=== PATIENT | male | born 1960 | race Caucasian/White ===

== ENCOUNTER 2023-09-04 08:11 | Emergency (ER) | payer MEDICARE, OTHER ==
[~2023-09-04] VITALS: Ht 167.6 cm; Wt 72.6 kg
[2023-09-04 08:42] LABS: HEMATOCRIT 47.3 % (42-54); MEAN CORPUSCULAR HEMOGLOBIN 33.8 pg (27.0-33.0); MEAN CORPUSCULAR VOLUME 99.2 fL (79-99); RED BLOOD CELL COUNT(AUTO) 4.77 MIL/uL (4.50-6.20); RED CELL DISTRIBUTION WIDTH 12.7 % (11.0-15.5); WHITE BLOOD COUNT (AUTO) 9.7 K/uL (4.8-10.8)
[2023-09-04 08:48] LABS: APPEARANCE,URINE CLEAR (CLEAR); BILIRUBIN,URINE NEGATIVE (NEGATIVE); COLOR,URINE LIGHT-YELLOW (YELLOW); GLUCOSE, URINE (UA) NEGATIVE (NEGATIVE); KETONES,URINE 5 mg/dL (NEGATIVE); LEUKOCYTE ESTERASE ,URINE NEGATIVE Leu/uL (NEGATIVE); NITRATE,URINE NEGATIVE (NEGATIVE); OCCULT BLOOD,URINE NEGATIVE (NEGATIVE); PH,URINE 6.5 (5.0-8.0); PROTEIN,URINE NEGATIVE (NEGATIVE); UROBILINOGEN,URINE 0.2 mg/dL (0.2-1.0)
[2023-09-04 08:49] LABS: ADD UA MICROSCOPIC YES
[2023-09-04 08:52] LABS: AMPHET/METH SCREEN,URINE NEGATIVE (NEGATIVE); BARBITURATE SCREEN, URINE NEGATIVE (NEGATIVE); BENZODIAZEPINES SCREEN,URINE NEGATIVE (NEGATIVE); CANNABINOID SCREEN,URINE NEGATIVE (NEGATIVE); COCAINE SCREEN,URINE NEGATIVE (NEGATIVE); MUCUS,URINE RARE LPF (None Seen); OPIATE SCREEN,URINE NEGATIVE (NEGATIVE); PHENCYCLIDINE SCREEN,URINE NEGATIVE (NEGATIVE); WBC,URINE 0-1 /HPF (0-1)
[2023-09-04 08:55] LABS: CARBON DIOXIDE 33 mmol/L (21-32); CHLORIDE 97 mmol/L (101-111); CREATININE 1.1 mg/dL (0.5-1.5); GLOMERULAR FILTR. RATE CALC 76 mL/min (>90); GLUCOSE,RANDOM 113 mg/dL (70-105); POTASSIUM 3.2 mmol/L (3.5-5.1); SODIUM SERUM 135 mmol/L (136-145); UREA NITROGEN, BLOOD 13 mg/dL (7-18)
[2023-09-04 08:59] LABS: ALANINE AMINOTRANSFERASE 25 U/L (12-78); ALBUMIN 3.4 g/dL (3.5-5.0); ASPARTATE AMINOTRANSFERASE 20 U/L (10-37); BILIRUBIN,TOTAL 0.4 mg/dL (0.2-1.0); SALICYLATE 4.5 mg/dL (2.8-20.0); TOTAL PROTEIN, SERUM 7.4 g/dL (6.0-8.3)
[2023-09-04 09:07] LABS: ACETAMINOPHEN < 1 mcg/mL (10-29)
[2023-09-04] MEDS ORDERED: POTASSIUM BICARB/CIT AC 25 MEQ TABLET.EFF PO ONE (09:30)
[2023-09-04 10:08] LABS: ALCOHOL, BLOOD < 3 mg/dL (0-10); CREATINE KINASE, TOTAL 120 U/L (21-232)
[2023-09-04] MEDS ORDERED: NICOTINE 14 MG/ 24 HR PATCH TD SCH (13:00)
[2023-09-04 13:24] VITALS: BP 137/85; PULSE 88; RESP 16; O2SAT 96
== END 2023-09-04 15:51 | disposition home or self-care (01) ==
LOC: EDH 08:11
DX: R45.851 Suicidal ideations (principal); R44.1 Visual hallucinations; R44.0 Auditory hallucinations
CPT/HCPCS: 99283; 82550; 80053; 80305; 85027; 81001; 36415; G0481